=== PATIENT | female | born 1975 | race Hispanic/Latino ===

== ENCOUNTER 2017-12-10 20:26 | Emergency (ER) | payer OTHER ==
[2017-12-10 20:56] VITALS: BP 132/90
[2017-12-10] MEDS ORDERED: PRINIVIL10 M1 PO (21:30)
[2017-12-10] MEDS ORDERED: ATORVASTATIN CA10 M1 PO (21:31)
--- NOTE | 2017-12-10 22:12 | RADIOLOGY REPORT ---
EXAMINATION: XR TOES, LEFT CLINICAL INFORMATION: Sprain toe COMPARISON: None TECHNIQUE: 3 views of the left toes were obtained. FINDINGS: There are no fractures or dislocations. No joint effusion is identified. No bone, joint or soft tissue abnormality is demonstrated. IMPRESSION: Unremarkable examination.
--- NOTE | 2017-12-10 22:40 | ED ANKLE/FOOT INJURY COMPLAINT ---
History of Present Illness General Chief Complaint: Lower Extremity Problems Stated Complaint: L FOOT/BIG TOE PAIN S/P TRIP W/O FALLING Source: patient Exam Limitations: no limitations Vital Signs & Intake/Output Vital Signs & Intake/Output Vital Signs Date Time Temp Pulse Resp B/P B/P Pulse O2 O2 Flow FiO2 Mean Ox Delivery Rate 12/11 2055 94 20 132/90 99 ED Intake and Output 12/11 0000 12/10 1200 Intake Total 0 Output Total Balance 0 Intake, Oral 0 Allergies Coded Allergies: No Known Allergies (12/10/17) Reconcile Medications Atorvastatin Calcium (Unknown Strength) TABLET (Unknown Dose) PO DAILY CHOLESTEROL (Reported) Lisinopril (Prinivil) 10 MG TABLET 1 TAB PO DAILY BP (Reported) Triage Note: 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 yes : No Patient currently breastfeeds: No HPI: Patient presents for evaluation of a dorsal foot injury that occurred shortly before arrival. Patient states that she got her foot hung up on the stairs. Past History Travel History Traveled to [place] past 21 day No Medical History Any Pertinent Medical History? see below for history Neurological: NONE EENT: NONE Cardiovascular: hypertension Respiratory: NONE Gastrointestinal: NONE Hepatic: NONE Renal: NONE Musculoskeletal: NONE Psychiatric: NONE Endocrine: NONE Surgical History Surgical History: non-contributory Psychosocial History What is your primary language Egyptian Tobacco Use: Never used Family History Hx Contributory? No Review of Systems Review of Systems Constitutional: Reports: no symptoms. EENTM: Reports: no symptoms. Respiratory: Reports: no symptoms. Cardiovascular: Reports: no symptoms. GI: Reports: no symptoms. Genitourinary: Reports: no symptoms. Musculoskeletal: Reports: see HPI. Skin: Reports: no symptoms. Neurological/Psychological: Reports: no symptoms. Hematologic/Endocrine: Reports: no symptoms. Immunologic/Allergic: Reports: no symptoms. All Other Systems: Reviewed and Negative Physical Exam Physical Exam Leg/Knee/Thigh Left: SEE BELOW Comments: Gen.: Well-nourished, well-developed, no acute respiratory distress. Head: Normocephalic, atraumatic. Eyes: Normal inspection bilaterally Ears: Normal inspection bilaterally Nose: Normal inspection Throat/mouth : Moist mucosa Neck: Supple, full range of motion, no goiter Heart: Regular rate and rhythm Lungs: Quiet respirations Back: Normal range of motion Extremities: Left foot: Tenderness over the distal dorsum with mild soft tissue swelling but no ecchymoses or erythema, the toes are neurovascularly intact and nontender. Neurologic: Cranial nerves grossly intact, speech is clear Skin: warm and dry Psychiatric: Calm, cooperative, no apparent delusions or hallucinations Progress Differential Diagnosis: fracture, dislocation, sprain, contusion Plan of Care: SEE D/C INSTRUCTIONS Departure Departure Disposition: HOME OR SELF CARE Condition: Stable Clinical Impression Primary Impression: Sprain of foot, left Qualifiers: Encounter type: initial encounter Qualified Code: S93.602A - Unspecified sprain of left foot, initial encounter Referrals: Ramona Aceves APRN (PCP/Family) Additional Instructions: Activity as tolerated. Ibuprofen 600 mg every 6 hours as needed for foot pain. Apply a cool compress to any areas of swelling over the next 48 hours. Follow- up with your primary care physician if not improved in the next 10-14 days. Return immediately if any concerns or sudden worsening. Please note that there might be incidental findings in your evaluation that are unrelated to the current emergency department visit. Please notify your primary care doctor about this emergency department visit in order to obtain and review all of the testing performed so that these incidental findings can be monitored as needed. If you had an x-ray performed, please understand that some fractures may not be seen on the initial set of x-rays. If your symptoms persist you might need a repeat set of x-rays to check for such a fracture. If you had a laceration evaluated, please understand that foreign bodies such as glass or wood may not be visible to the naked eye or on plain x-rays. If the wound becomes red, swollen, increasingly more painful or if there is any drainage from the wound, please have it reevaluated by a physician for the possibility of a retained foreign body. If you're unable to follow up as outlined in the discharge instructions please return to the emergency department. Thank you for choosing the [facility] Emergency Department for your care. It was a pleasure to serve you today. Glen Coffman M.D. [facility] Departure Forms: Customer Survey [employer] Employee Acc Report Send Accident report to Occupational Medicine Yes Visit Type+ Seen in ER Work Status+ Return to work tomorrow Include witness names Diagnosis: FOOT SPRAIN TO BE COMPLETED BY PROVIDER Pg 1/2 Pg 2/2 General Discharge Information
== END 2017-12-10 22:45 ==
LOC: ERH 20:26
DX: S93.602A Unspecified sprain of left foot, initial encounter (principal); X58.XXXA Exposure to other specified factors, initial encounter; Y92.89 Other specified places as the place of occurrence of the external cause; Y93.89 Activity, other specified
CPT/HCPCS: 73660-LT

== ENCOUNTER 2018-03-08 14:52 | Emergency (ER) | payer OTHER ==
[~2018-03-08] VITALS: Ht 152.4 cm; Wt 68.0 kg
[~2018-03-08 14:52] MED LIST: ATORVASTATIN CA10 M1 PO; PRINIVIL10 M1 PO
[2018-03-08 14:55] VITALS: BP 144/94
--- NOTE | 2018-03-08 16:28 | ED GENERAL ADULT ---
History of Present Illness General Chief Complaint: Hand or Wrist Injury Stated Complaint: ? FIBER GLASS SPLINTER INRT FINGER Source: patient Exam Limitations: no limitations Vital Signs & Intake/Output Vital Signs & Intake/Output Vital Signs Date Time Temp Pulse Resp B/P B/P Pulse O2 O2 Flow FiO2 Mean Ox Delivery Rate 03/08 1455 97.6 77 20 144/94 96 Room Air Allergies Coded Allergies: No Known Allergies (12/10/17) Reconcile Medications Atorvastatin Calcium (Unknown Strength) TABLET (Unknown Dose) PO DAILY CHOLESTEROL (Reported) Lisinopril (Prinivil) 10 MG TABLET 1 TAB PO DAILY BP (Reported) Triage Note: PT TO ED FOR ? FIBERGLASS SPLINTER IN RIGHT INDEX FINGER. 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 UNKNOWN LAST TETANUS. Triage Nurses Notes Reviewed? yes Onset: Abrupt Duration: minute(s): Timing: single episode today : No Patient currently breastfeeds: No HPI: 42-year-old female with a history of hypertension presenting with splinter to right index finger sustained just prior to arrival. 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 Denies numbness or paresthesias. Unknown last tetanus shot. (Brenda Larios) Past History Travel History Traveled to [place] past 21 day No Medical History Any Pertinent Medical History? see below for history Neurological: NONE EENT: NONE Cardiovascular: hypertension Respiratory: NONE Gastrointestinal: NONE Hepatic: NONE Renal: NONE Musculoskeletal: NONE Psychiatric: NONE Endocrine: NONE Surgical History Surgical History: non-contributory Psychosocial History What is your primary language Luxembourger Tobacco Use: Never used ETOH Use: denies use Illicit Drug Use: denies illicit drug use Family History Hx Contributory? No (Brenda Larios) Review of Systems Review of Systems Constitutional: Reports: no symptoms. EENTM: Reports: no symptoms. Respiratory: Reports: no symptoms. Cardiovascular: Reports: no symptoms. GI: Reports: no symptoms. Genitourinary: Reports: no symptoms. Musculoskeletal: Reports: no symptoms. Skin: Reports: see HPI. Neurological/Psychological: Reports: no symptoms. Hematologic/Endocrine: Reports: no symptoms. Immunologic/Allergic: Reports: no symptoms. All Other Systems: Reviewed and Negative (Brenda Larios) Physical Exam Physical Exam General Appearance: well developed/nourished, no apparent distress, alert, awake , comfortable Head: atraumatic, normal appearance Eyes: Bilateral: normal appearance. Neck: normal inspection Respiratory: normal breath sounds, lungs clear Cardiovascular: regular rate/rhythm Gastrointestinal: soft, non-tender Back: normal inspection Extremities: hallux plantar visible to the palmar surface of the distal phalanx on the right index finger, unrestricted range of motion at the MCP/PIP/DIP, sensation intact to median and radial nerves, motor strength 5 out of 5 with finger flexion, extension, interosseous strength, Refill less than 2 seconds, radial pulses 2+. Neurologic/Psych: awake, alert, oriented x 3, normal gait, normal mood/affect Skin: normal color, warm/dry Core Measures ACS in differential dx? No CVA/TIA Diagnosis: No Sepsis Present: No Sepsis Focused Exam Completed? No (Brenda Larios) Progress Differential Diagnoses I considered the following diagnoses in my evaluation of the patient: [Metallic foreign body, low concern for fracture versus nerve injury versus tendon injury versus vascular injury] Plan of Care: Current Medications Sig/Jessica Start time Last Medication Dose Stop Time Status Admin Tetanus/Diphtheria 0.5 ML ONCE ONE 03/08 1630 UNVr Toxoids Adsorbed 03/08 1631 (Decavac) Metallic foreign body removed using forceps A superficial abrasion remains to the finger Offered patient x-ray to evaluate for retained foreign body, but declining at this time Tetanus updated Counseled on supportive care and strict return precautions Initial ED EKG: none (Brenda Larios) Departure Departure Disposition: HOME OR SELF CARE Condition: Stable Clinical Impression Primary Impression: Splinter Referrals: Ramona Aceves APRN (PCP/Family) Additional Instructions: Keep the area clean and dry. Follow up with the primary care provider for re- evaluation. Return to the emergency department for any new or worsening symptoms. Departure Forms: Customer Survey [employer] Employee Acc Report General Discharge Information (Brenda Larios) PA/SERVICE ESTABLISHMENT ATTENDANT Co-Sign Statement Statement: ED Attending supervision documentation- [] I saw and evaluated the patient. I have also reviewed all the pertinent lab results and diagnostic results. I agree with the findings and the plan of care as documented in the PA's/SERVICE ESTABLISHMENT ATTENDANT's documentation. [X] I have reviewed the ED Record and agree with the PA's/SERVICE ESTABLISHMENT ATTENDANT's documentation. [] Additions or exceptions (if any) to the PAs/SERVICE ESTABLISHMENT ATTENDANT's note and plan are summarized below: [] (Fe CASTILLO,Ap Rivera) Critical Care Note Critical Care Note Critical Care Time: non-applicable (Prema MONSIVAIS,Brenda)
== END 2018-03-08 16:38 ==
LOC: ERH 14:52
DX: S60.450A Superficial foreign body of right index finger, initial encounter (principal); X58.XXXA Exposure to other specified factors, initial encounter; Y92.234 Operating room of hospital as the place of occurrence of the external cause; Y93.89 Activity, other specified
CPT/HCPCS: 90471; 90714